=== PATIENT | female | born 1950 | race Two or more races ===

== ENCOUNTER 2021-12-01 09:39 | Emergency (ER) | payer BC, MEDICAID ==
[~2021-12-01] VITALS: Ht 162.6 cm; Wt 68.0 kg
[2021-12-01 09:39] VITALS: BP 115/54
[2021-12-01] MEDS ORDERED: KETOROLAC TROMETH 60MG/2ML VIAL IM ONE (11:00)
[2021-12-01 11:09] LABS: Urine Bacteria FEW /hpf (None Seen); Urine Blood Negative /uL (Negative); Urine Specific Gravity 1.022 (1.001-1.035); Urine WBC 95 /hpf (0 - 5)
[2021-12-01] MEDS ORDERED: LIDOCAINE 1% HCL (LOCAL ANESTH.) INJ 20ML MDV ID ONE (11:30)
[2021-12-01] MEDS ORDERED: cefTRIAXone SOD 1,000 MG VL IM ONE (11:30)
[2021-12-01] MEDS ORDERED: LIDOCAINE 1%HCL (LOCAL ANESTH) 10 ML MDV ONE (11:31)
[2021-12-01] MEDS ORDERED: ACET-1158 PO (11:42)
[2021-12-01] MEDS ORDERED: SULF800T7 PO (11:42)
[2021-12-01] MEDS ORDERED: CYCL-837 PO (11:45)
== END 2021-12-01 11:59 | disposition home or self-care (01) ==
LOC: ER 09:39
DX: S39.012A Strain of muscle, fascia and tendon of lower back, initial encounter (principal); N39.0 Urinary tract infection, site not specified; G89.29 Other chronic pain; M54.9 Dorsalgia, unspecified; Z90.49 Acquired absence of other specified parts of digestive tract; X58.XXXA Exposure to other specified factors, initial encounter; Y93.89 Activity, other specified; Y92.89 Other specified places as the place of occurrence of the external cause; Y99.8 Other external cause status
CPT/HCPCS: 72100; 81001; 93005; 96372; 99285; J0696; J1885; J2001

== ENCOUNTER 2022-04-20 10:46 | Emergency (ER) | payer BC, MEDICAID ==
[~2022-04-20] VITALS: Ht 162.6 cm; Wt 69.9 kg
[~2022-04-20 10:46] MED LIST: ACET-1158 PO; CYCL-837 PO; SULF800T7 PO
[2022-04-20 11:00] VITALS: BP 136/50
[2022-04-20 12:45] LABS: Basophils # (auto) 0 10 ^3/uL (0-0.2); Basophils % (auto) 0.7 % (0.0-2.0); Eosinophils # (auto) 0.3 10 ^3/uL (0-0.8); Eosinophils % (auto) 3.9 % (0.0-7.0); Hematocrit 40.4 % (36.0-46.0); Hemoglobin 13.2 g/dL (12.2-16.2); Lymphocytes # (auto) 1.5 10 ^3/uL (0.4-5.4); Mean Corpuscular Hgb Conc. 32.7 g/dL (32.0-36.0); Mean Corpuscular Volume 91.8 fL (80.0-100.0); Monocytes # (auto) 0.5 10 ^3/uL (0-1.3); Monocytes % (auto) 7.3 % (0.0-12.0); Neutrophils # (auto) 4.2 10 ^3/uL (1.6-8.6); Neutrophils % (auto) 65.1 % (37.0-80.0); Nucleated Red Blood Cells % 0.1 %; White Blood Cell 6.5 10^3/uL (4.4-10.8)
[2022-04-20 13:05] LABS: Albumin 3.9 g/dL (3.4-5.0); Calcium 9.2 mg/dL (8.5-10.1); Potassium 4.3 mmol/L (3.5-5.1)
[2022-04-20 13:18] LABS: BUN/Creatinine Ratio 19.8; Bilirubin, Total 0.5 mg/dL (0.2-1.0); Total Protein 6.9 g/dL (6.4-8.2)
== END 2022-04-20 16:13 | disposition home or self-care (01) ==
LOC: ER 10:46
DX: R25.1 Tremor, unspecified (principal); E78.5 Hyperlipidemia, unspecified; K59.00 Constipation, unspecified
CPT/HCPCS: 36415; 80053; 85025

== ENCOUNTER 2022-05-19 05:59 | Emergency (ER) | payer BC, MEDICAID ==
[~2022-05-19] VITALS: Ht 162.6 cm; Wt 68.0 kg
[2022-05-19 06:35] VITALS: BP 120/54
[2022-05-19] MEDS ORDERED: KETOROLAC TROMETH 60MG/2ML VIAL IM ONE (06:45)
[2022-05-19] MEDS ORDERED: METHOCARBAMOL 500 MG TAB PO ONE (07:30)
[2022-05-19] MEDS ORDERED: METH500T22 PO (07:34)
== END 2022-05-19 07:36 | disposition home or self-care (01) ==
LOC: EDBD 05:59 → ER 05:59
DX: G89.29 Other chronic pain (principal); M54.50 Low back pain, unspecified; M51.36 Other intervertebral disc degeneration, lumbar region; E78.5 Hyperlipidemia, unspecified; Z90.49 Acquired absence of other specified parts of digestive tract; Z79.899 Other long term (current) drug therapy
CPT/HCPCS: 93005; 96372; 99283; J1885

== ENCOUNTER 2022-06-09 17:55 | Emergency (ER) | payer BC, MEDICAID ==
[~2022-06-09] VITALS: Ht 162.6 cm; Wt 68.0 kg
[~2022-06-09 17:55] MED LIST changes: +METH500T22 PO
[2022-06-09] MEDS ORDERED: ALUM & MAG HYDROX-SIMETH LIQ(MAALOX) 30 ML PO ONE ×2 (19:30→22:00)
[2022-06-09] MEDS ORDERED: LIDOCAINE VISCOUS 2% 15ML UD PO ONE ×2 (19:30→22:00)
[2022-06-09] MEDS ORDERED: ONDANSETRON HCL 4 MG/2 ML VIAL IV ONE (19:30)
[2022-06-09 19:37] LABS: Urine Bacteria FEW /hpf (None Seen); Urine WBC 6 /hpf (0 - 5)
[2022-06-09 19:38] LABS: Urine Blood Normal /uL (Negative); Urine Specific Gravity 1.005 (1.001-1.035)
[2022-06-09 20:09] LABS: Albumin 4.3 g/dL (3.4-5.0); Calcium 8.9 mg/dL (8.5-10.1); Potassium 4.3 mmol/L (3.5-5.1)
[2022-06-09 20:12] LABS: BUN/Creatinine Ratio 23.1; Bilirubin, Total 0.4 mg/dL (0.2-1.0); Total Protein 7.3 g/dL (6.4-8.2)
[2022-06-09 20:17] LABS: Basophils # (auto) 0 10 ^3/uL (0-0.2); Basophils % (auto) 0.5 % (0.0-2.0); Eosinophils # (auto) 0.1 10 ^3/uL (0-0.8); Eosinophils % (auto) 1.8 % (0.0-7.0); Hemoglobin 14.2 g/dL (12.2-16.2); Lymphocytes # (auto) 2.1 10 ^3/uL (0.4-5.4); Mean Corpuscular Hemoglobin 31.7 pg (28.0-32.0); Mean Corpuscular Hgb Conc. 34.7 g/dL (32.0-36.0); Mean Corpuscular Volume 91.4 fL (80.0-100.0); Monocytes # (auto) 0.6 10 ^3/uL (0-1.3); Monocytes % (auto) 6.8 % (0.0-12.0); Neutrophils # (auto) 5.4 10 ^3/uL (1.6-8.6); Neutrophils % (auto) 65.9 % (37.0-80.0); Red Blood Cells 4.49 10^6/uL (4.0-5.20); Red Cell Distribution Width 12.8 % (11.8-14.3); White Blood Cell 8.2 10^3/uL (4.4-10.8)
[2022-06-09] MEDS ORDERED: CEPH-322 PO (21:11)
[2022-06-09] MEDS ORDERED: FAMO20TA10 PO (21:12)
[2022-06-09] MEDS ORDERED: CEPHALEXIN 250 MG CAP PO ONE (21:15)
[2022-06-09] MEDS ORDERED: FAMOTIDINE 20 MG TAB PO ONE (21:15)
[2022-06-09 21:50] VITALS: BP 149/81
== END 2022-06-09 22:05 | disposition home or self-care (01) ==
LOC: ER 17:55
DX: N39.0 Urinary tract infection, site not specified (principal); K29.70 Gastritis, unspecified, without bleeding; K59.00 Constipation, unspecified; K21.9 Gastro-esophageal reflux disease without esophagitis; E78.5 Hyperlipidemia, unspecified; Z90.49 Acquired absence of other specified parts of digestive tract; Z79.899 Other long term (current) drug therapy
CPT/HCPCS: 36415; 74176; 80053; 81001; 83690; 85025; 93005; J2405

== ENCOUNTER 2022-10-08 08:38 | Emergency (ER) | payer BC, MEDICAID ==
[~2022-10-08] VITALS: Ht 162.6 cm; Wt 69.9 kg
[~2022-10-08 08:38] MED LIST changes: +CEPH-322 PO; +FAMO20TA10 PO
[2022-10-08] MEDS ORDERED: ALBUTEROL SULF 2.5 MG/0.5ML(0.5%) NEB SOLN NEB ONE (09:45)
[2022-10-08] MEDS ORDERED: IPRATROPIUM BROM 0.5 MG/2.5ML INH SOL NEB ONE (09:45)
[2022-10-08] MEDS ORDERED: LEVO500T31 PO (10:59)
[2022-10-08] MEDS ORDERED: METH4PAK PO (10:59)
[2022-10-08] MEDS ORDERED: ALBU108A5 IN (10:59)
[2022-10-08 11:13] VITALS: BP 101/55
== END 2022-10-08 11:14 | disposition home or self-care (01) ==
LOC: ER 08:38
DX: J20.9 Acute bronchitis, unspecified (principal); J01.90 Acute sinusitis, unspecified
CPT/HCPCS: 70450; 71045; 93005; 94640; 99284; J7644

== ENCOUNTER 2024-05-03 16:43 | Emergency (ER) | payer OTHER, MEDICAID ==
[~2024-05-03] VITALS: Ht 157.5 cm; Wt 56.8 kg
[~2024-05-03 16:43] MED LIST changes: -ACET-1158 PO; +ACET500T58 PO; +ALBU108A5 IN; -CEPH-322 PO; +CEPH250C PO; +LEVO500T31 PO; +METH-1181 PO; +METH4PAK PO; -METH500T22 PO; +SULF800T23 PO; -SULF800T7 PO
[2024-05-03 17:24] LABS: Basophils # (auto) 0 10 ^3/uL (0-0.2); Basophils % (auto) 0.7 % (0.0-2.0); Eosinophils # (auto) 0.1 10 ^3/uL (0-0.8); Eosinophils % (auto) 1.8 % (0.0-7.0); Hematocrit 41.1 % (36.0-46.0); Hemoglobin 14.3 g/dL (12.2-16.2); Lymphocytes # (auto) 1.5 10 ^3/uL (0.4-5.4); Lymphocytes % (auto) 27.5 % (10.0-50.0); Mean Corpuscular Hemoglobin 31.4 pg (28.0-32.0); Mean Corpuscular Hgb Conc. 34.8 g/dL (32.0-36.0); Mean Corpuscular Volume 90.2 fL (80.0-100.0); Monocytes # (auto) 0.5 10 ^3/uL (0-1.3); Neutrophils # (auto) 3.3 10 ^3/uL (1.6-8.6); Nucleated Red Blood Cells % 0.1 %; Platelet Count (auto) 194 10^3/uL (140-450); Red Blood Cells 4.56 10^6/uL (4.0-5.20); Red Cell Distribution Width 12.2 % (11.8-14.3); White Blood Cell 5.4 10^3/uL (4.4-10.8)
[2024-05-03] MEDS: ASPirin 81 mg TAB PO ONE (17:55)
[2024-05-03 17:57] VITALS: BP 102/40; PULSE 60; RESP 18; O2SAT 98
[2024-05-03 18:31] LABS: Alanine Aminotransferase 16 U/L (7-40); Albumin 4.6 g/dL (3.2-4.8); Alkaline Phosphatase 54 U/L (46-116); Anion Gap 7 (5-15); Aspartate Aminotransferase 14 U/L (13-40); Bilirubin, Total 0.6 mg/dL (0.2-1.0); Blood Urea Nitrogen 25 mg/dL (9-23); Calcium 9.8 mg/dL (8.7-10.4); Carbon Dioxide 29 mmol/L (20-31); Chloride 107 mmol/L (98-107); Glucose 100 mg/dL (74-106); Magnesium 2.2 mg/dL (1.6-2.6); Potassium 3.9 mmol/L (3.5-5.1); Sodium 143 mmol/L (136-145); Total Protein 6.6 g/dL (5.7-8.2)
== END 2024-05-03 18:14 | disposition home or self-care (01) ==
LOC: EDBD 16:43 → ER 16:43
DX: R07.89 Other chest pain (principal); E78.5 Hyperlipidemia, unspecified; K21.9 Gastro-esophageal reflux disease without esophagitis; Z85.9 Personal history of malignant neoplasm, unspecified; Z98.890 Other specified postprocedural states; Z79.899 Other long term (current) drug therapy
CPT/HCPCS: 36415; 71045; 80053; 83735; 84484; 85025; 93005